=== PATIENT | male | born 2000 | race Caucasian/White ===

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

== ENCOUNTER 2021-09-30 12:02 | Emergency (ER) | payer OTHER ==
[~2021-09-30] VITALS: Ht 172.7 cm; Wt 90.7 kg
[~2021-09-30 12:02] MED LIST: BACTRIM DS TAB1 EACH PO; ZOFRAN4 MG PO
[2021-09-30] MEDS ORDERED: TRIPLE ANTIBIOT28 G2 TOP (13:04)
[2021-09-30 13:25] VITALS: BP 116/72
== END 2021-09-30 13:26 | disposition home or self-care (01) ==
LOC: M.ERS 12:02
DX: T20.10XA Burn of first degree of head, face, and neck, unspecified site, initial encounter (principal); X10.2XXA Contact with fats and cooking oils, initial encounter; Y93.89 Activity, other specified; Y92.89 Other specified places as the place of occurrence of the external cause; Y99.9 Unspecified external cause status